=== PATIENT | female | born 1985 | race Caucasian/White ===

== ENCOUNTER 2025-05-19 14:37 | Outpatient (REF) | payer MEDICAID, SELFPAY ==
--- OUTSIDE RECORDS SUMMARY | 2025-05-19 14:00 | XMS_ITS | Encounter Summary ---
Author Organization [employer] Address [address] [place] [address] [address] [address] Care Team Providers Care Spiral Machine Operator Name Role Phone Vandana Horne NP Primary Care Provider [phone] Reason for Referral * Consultation (STAT) - Authorized Specialty Diagnoses / Procedures Referred By Lanie walsh Referred To Contact Family Medicine Diagnoses Psoriasis Vandana Horne NP [address] [place] [address] Phone: tel: fax: Referral ID Status Reason Start Date Expiration Date Visits Requested Visits Authorized [id number] Authorized Specialty Services Required 05/19/2026 1 1 Reason for Visit * Reason Comments Rash Encounter Details Date Type Department Care Team ([facility] Contact Info) Description 05/19/2025 2:00 PM EST Office Visit [facility] [address] [place], [place] [phone] Vandana Horne NP [address] [place] [address] Psoriasis (Primary Dx); Acute cellulitis Social History Tobacco Use Types Packs/Day Years Used Date Smoking Tobacco: Every Day Cigarettes Passive Smoke Exposure: Current Smokeless Tobacco: Never Tobacco Cessation:Ready to Q uit: Not Asked; Counseling Given: Not Answered Comments Unknown Sex and Gender Information Value Date Recorded Sex Assigned at Female 03/21/2022 10:36 AM EDT Legal Sex Female 10:36 AM EDT Gender Identity Female 05/19/2025 1:57 PM EST Sexual Orientation Straight 05/19/2025 1: 57 PM EST documented as of this encounter Last Filed Vital Signs Vital Sign Reading Time Taken Comments Blood Pressure 147/97 05/19/2025 2:06 PM EST Pulse 115 05/19/2025 2:06 PM EST Temperature 36.3 C (97.4 F) 05/19/2025 2:06 PM EST Respiratory Rate 16 05/19/2025 2:06 PM EST Oxygen Saturation 100% 05/19/2025 2:06 PM EST Inhaled Oxygen Concentration - - Weight 46.9 kg (103 lb 6.4 oz) 05/19/2025 2:06 P M EST Height 152.4 cm (5') 05/19/2025 2:06 PM EST Body Mass Index 20.19 05/19/2025 2:06 PM EST documented in this encounter Progress Notes * Vandana Horne NP - 05/19/2025 2:00 PM EST Jennifer Hawley, 40-year-old female - Chronic scalp eczema since childhood, worsened after head injury with matt and stitches at theback of the head at the beginning of the year - Scalp burning sensation, covered in flakes, intermittent improvement with topical cream - Rash on left ankle and foot for approximately 2 months, associated with swelling, burning, aching, and increased itchiness - Swelling in left ankle and foot persistent for almost 1 month, no trauma reported - Difficulty walking due to pain in left ankle and foot - Denies history of gout - Family history of gout in mother - History of miscarriage approximately 1.5 years after previous childbirth - Started taking liquid collagen recently Problem List[1] Medical History[2] Allergies[3] Review of Systems Musculoskeletal: Positive for arthralgias. Skin: Positive for rash. BP (!) 147/97 (BP Location: Left arm, Patient Position: Sitting, BP Cuff Size: Adult) Pulse (!) 115 Temp 97.4 ??F (36.3 ??C) (Temporal) Resp 16 Ht 5' (1.524 m) Wt 103 lb 6.4 oz (46.9 kg) SpO2 100% BMI 20.19 kg/m?? Physical Exam Vitals reviewed. HENT: Head: Normocephalic and atraumatic. Nose: Nose normal. Eyes: Conjunctiva/sclera: Conjunctivae normal. Cardiovascular: Rate and Rhythm: Normal rate and regular rhythm. Pulmonary: Effort: Pulmonary effort is normal. Breath sounds: Normal breath sounds. Musculoskeletal: General: Swelling and tenderness present. Cervical back: Normal range of motion and neck supple. Left lower leg: Edema present. Skin: Findings: Erythema, lesion and rash present. Comments: See media (left lower extremity with large plaque, nad ulceration, sig erythema) Neurological: General: No focal deficit present. Mental Status: She is alert. - SKIN: Erythematous rash on the left ankle, warm to touch. - EXTREMITIES: Edema in the left ankle and foot, described as achy. Results: No visits with results within 28 Day(s) from this visit. Latest known visit with results is: No results found for any previous visit. Assessment & Plan Psoriasis Orders: CBC auto differential; Future Sed Rate by Modified Westergren; Future C-reactive Protein; Future Rheumatoid Factor; Future DUGLAS Screen,IFA, with Reflex to Titer and Pattern; Future TSH W/Reflex to FT4; Future Comprehensive Metabolic Panel; Future XR Ankle 3+ Views Left; Future Referral to [facility] Skin Adult; Future Acute cellulitis Assessment & Plan Psoriasis: - Plaque psoriasis with severe presentation. No evidence of psoriatic arthritis. - Prescribed topical steroid cream for 4 weeks. Recommended daily use of skin moisturizers with ointment or thick cream. Referral to manager call center for further management, including consideration of phototherapy and immunotherapy. Edema and rash of left ankle: - Edema and rash of left ankle with concern for possible complicated infection. Differential diagnosis includes cellulitis. - Ordered blood work including CMP, liver and kidney function, and autoimmune panel. Ordered X-ray of left ankle. Will seek second opinion from colleague. May add antibiotic depending on further evaluation. Prescription - Topical high-potency corticosteroid cream, once or twice daily for 4 weeks - Emollient ointment or thick cream, daily Appointments - Referral to manager call center Current Medications[4] Based on our discussion, I have outlined the following instructions for you: - Use the prescribed steroid cream on your skin once or twice a day for 4 weeks, and also apply a thick moisturizing cream or ointment every day. Next appointment(s): Referral to manager call center This note was drafted using [employer] (AI) technology. The patient/patient's guardian has been informed and has consented to the use of this technology: Yes [1] There is no problem list on file for this patient. [2] No past medical history on file. [3] Allergies Allergen Reactions Sulfa Antibiotics [4] Current Outpatient Medications: doxycycline (Vibra-Tabs) 100 MG tablet, Take 1 tablet (100 mg) by mouth 2 times daily for 7 days. Take with a full glass of water and do not lie down for at least 30 minutes after., Disp: 14 tablet, Rfl: 0 predniSONE (Deltasone) 20 MG tablet, Take 1 tablet (20 mg) by mouth 3 times daily for 5 days, THEN 1 tablet (20 mg) 2 times daily for 5 days, THEN 1 tablet (20 mg) Once per day for 5 days., Disp: 30 tablet, Rfl: 0 documented in this encounter Plan of Treatment Upcoming Encounters Date Type Department Care Team (Late st Contact Info) Description 06/20/2025 10:45 AM EST Office Visit [facility] [address], [place] [phone] Vandana Horne NP [address] [place] [address] Scheduled Orders Name Type Priority Associated Diagnoses Orde r Schedule Sed Rate by Modified Alejandraren Lab Routine Psoriasis Expected: 05/19/2025, Expires: 05/19/2026 C-reactive Protein Lab Routine Psoriasis Expected: 05/19/2025 (Approximate), Expires: 05/19/2026 Rheumatoid Factor Lab Routine Psoriasis Expected: 05/19/2025, Expires: 05/19/2026 DUGLAS Screen,IFA, with Reflex to Titer and Pattern Lab Routine Psoriasis Expected: 05/19/2025 (Approximate), Expires: 05/19/2026 TSH W/Reflex to FT4 Lab Routine Psoriasis Expected: 05/19/2025 (Approximate), Expires: 05/19/2026 Comprehensive Metabolic Panel Lab Routine Psoriasis Expected: 05/19/2025 (Approximate), Expires: 05/19/2026 XR Ankle 3+ Views Left Imaging Routine Psoriasis Expected: 05/19/2025, Expires: 05/19/2026 Scheduled Referrals Name Type Priority Associated Diagnoses Orde r Schedule Referral to [facility] D[facility] Skin Adult Outpatient Referral STAT Psoriasis Expected: 05/19/2025 (Approximate), Expires: 05/19/2026 documented as of this encounter Procedures Procedure Name Priority Date/Time Associated Diagnosis Comments CBC WITH AUTO DIFFERENTIAL Routine 05/19/2025 2:43 PM EST Psoriasis documented in this encounter Results * (ABNORMAL) CBC auto differential (05/19/2025 2:43 PM EST) White Blood Count 10.4 4.8 - 10.8 X10*3/uL [facility] Red Blood Count 4.71 4.20 - 5.50 X10*6/uL [facility] Hemoglobin 14.8 12.0 - 16.0 g/dl [facility] Hematocrit 46.0 37.0 - 47.0 % [facility] Mean Corpuscular Volume 97.7 80.0 - 98.0 fL [facility] Mean Corpuscular Hemoglobin 31.4 27.0 - 33.0 pg [facility] Mean Corpuscular HGB Conc 32.2 31.0 - 35.0 g/dl [facility] Red Cell Distribution Width 12.1 11.0 - 16.0 % [facility] Platelet Count 305 160 - 400 X10*3/uL [facility] Mean Platelet Volume 10.6 9.4 - 12.3 fL [facility] Neutrophils Percent Auto 79.0(H) 45 - 73 % [facility] Imm Gran Pct Auto 0.4 0.0 - 0.4 % [facility] Lymphocytes Percent Auto 12.0(L) 20 - 40 % [facility] Monocytes Percent Auto 5.7 2 - 11 % [facility] Eosinophils Percent Auto 2.2 0 - 4 % [facility] Basophils Percent Auto 0.7 0 - 2 % [facility] NRBC Pct Auto 0.0 0.0 - 0.2 /100WBC [facility] Neutrophils Absolute Auto 8.2 2.0 - 8.3 x10*3/uL [facility] Imm Gran Abs Auto 0.04(H) 0.00 - 0.03 X10*3/uL [facility] Lymphocytes Absolute Auto 1.2 1.2 - 4.9 X10*3/uL [facility] Monocytes Absolute Auto 0.6 0.1 - 1.2 X10*3/uL [facility] Eosinophils Absolute Auto 0.2 0.0 - 0.4 X10*3/uL [facility] Basophils Absolute Auto 0.1 0.0 - 0.2 X10*3/uL [facility] NRBC Abs Auto 0.000 0.0 - 0.012 X10*3/uL [facility] Blood Venous blood specimen / Unknown 05/19/2025 2:43 PM EST 05/19/2025 4:20 PM EST us Vandana Horne NP LAB BLOOD ORDERABLES Final Resul t Performing Organization Address City/State/[facility] Co de Phone Number [facility] [address] [place] [address] [phone] documented in this encounter Visit Diagnoses Diagnosis Psoriasis- Primary Other psoriasis Acute cellulitis documented in this encounter Care Teams Spiral Machine Operator Relationship Specialty Start Date End Date Vandana Horne NP [address] [place] [phone] PCP - General Family Medicine 05/19/25 documented as of this encounter
[2025-05-19 16:25] LABS: MANUAL DIFF FLAG NO
[2025-05-19 16:43] LABS: Hematocrit 46.0 % (37.0-47.0); Hemoglobin 14.8 g/dl (12.0-16.0); Imm Gran Abs Auto 0.04 X10*3/uL (0.00-0.03); Imm Gran Pct Auto 0.4 % (0.0-0.4); Lymphocytes Absolute Auto 1.2 X10*3/uL (1.2-4.9); Mean Corpuscular HGB Conc 32.2 g/dl (31.0-35.0); Mean Corpuscular Hemoglobin 31.4 pg (27.0-33.0); Mean Corpuscular Volume 97.7 fL (80.0-98.0); NRBC Abs Auto 0.000 X10*3/uL (0.0-0.012); NRBC Pct Auto 0.0 /100WBC (0.0-0.2); Platelet Count 305 X10*3/uL (160-400); Red Blood Count 4.71 X10*6/uL (4.20-5.50); White Blood Count 10.4 X10*3/uL (4.8-10.8)
--- OUTSIDE RECORDS SUMMARY | 2025-05-19 16:59 | XMS_ITS | Clinical Summary ---
Author Organization [employer] Address [address] [place] [address] [address] [address] Care Team Providers Care Deck Lid Fitter Name Role Phone Vandana Horne NP Primary Care Provider [phone] Allergies Active Allergy Reactions Criticality Noted Date Comments Sulfa Antibiotics 05/19/2025 Medications doxycycline (Vibra-Tabs) 100 MG tablet Take 1 tablet (100 mg) by mouth 2 times daily for 7 days. Take with a full glass of water and do not lie down for at least 30 minutes after. 14 tablet 05/19/2025 Active predniSONE (Deltasone) 20 MG tablet Take 1 tablet (20 mg) by mouth 3 times daily for 5 days, THEN 1 tablet (20 mg) 2 times daily for 5 days, THEN 1 tablet (20 mg) Once per day for 5 days. 30 tablet 05/19/2025 6 Active Encounters Date Type Department Care Team Description 05/19/2025 2:00 PM EST Office Visit [facility] WALK-IN [address] [address] Vandana Horne NP Psoriasis (Primary Dx); Acute cellulitis 05/19/2025 Travel from Last 3 Months Social History Tobacco Use Types Packs/Day Years [...] Orientation Straight 05/19/2025 1: 57 PM EST Last Filed Vital Signs Vital Sign Reading [...] Mass Index 20.19 05/19/2025 2:06 PM EST Plan of Treatment Upcoming Encounters Date Type Department Care Team (Late st Contact Info) Description 06/20/2025 10:45 AM EST Office Visit [facility] MEDIC[facility] [address] [place], [place] [phone] Vandana Horne, SARI [address] [place] [address] Health Maintenance Due Date Last Done Comments Depression Screening 1984 HIV Screening 1984 Lipid Panel 1984 SDOH Screening 1984 Disability Screening 1984 Alcohol/Substance Use Screening 1996 Family Planning (PISQ) 02/28/1999 HPV Vaccines (1 - 3-dose series) 02/28/1999 Hepatitis C Screening 02/28/2002 Hepatitis B Vaccines (1 of 3 - 19+ 3-dose series) 02/28/2003 Pneumococcal Vaccine: Pediat rics (0 to 5 Years) and At-Risk Patients (6 to 49) Years (1 of 2 - PCV) 02/28/2003 Pap Smear 02/28/2005 Cervical Cancer Screening 02/28/2014 HPV/Cotest 02/28/2014 Mammogram 2024 COVID-19 Vaccine (1 - 2024-2 6 season) 2025 Influenza Vaccine (#1) 2025 Tobacco Screening 05/19/2026 05/19/2025 Zoster Vaccines (1 of 2) 02/28/2034 DTaP/Tdap/Td Vaccines (2 - T d or Tdap) 11/15/2034 11/15/2024 RSV Patients and Pa tients Aged 60 years or older (1 - 1-dose 75+ series) 02/28/2059 HIB Vaccines Aged Out No longer eligi ble based on patient's age to complete this topic Hepatitis A Vaccines Aged Out No long er eligible based on patient's age to complete this topic IPV Vaccines Aged Out No longer eligi ble based on patient's age to complete this topic Meningococcal B Vaccine Aged Out No l onger eligible based on patient's age to complete this topic Meningococcal Vaccine Aged Out No johanne ayan eligible based on patient's age to complete this topic RSV under 20 months Aged Out No longe r eligible based on patient's age to complete this topic Rotavirus Vaccines Aged Out No longer eligible based on patient's age to complete this topic Procedures Procedure Name Priority Date/Time Associated Diagnosis Comments CBC WITH AUTO DIFFERENTIAL Routine 05/19/2025 2:43 PM EST Psoriasis from Last 3 Months Results * (ABNORMAL) CBC auto differential (05/19/2025 2:43 PM EST) White Blood Count 10.4 4.8 - 10.8 X10*3/uL [facility] Red Blood Count 4.71 4.20 - 5.50 X10*6/uL [facility] Hemoglobin 14.8 12.0 - 16.0 g/dl [facility] Hematocrit 46.0 37.0 - 47.0 % [facility] Mean Corpuscular Volume 97.7 80.0 - 98.0 fL [facility] Mean Corpuscular Hemoglobin 31.4 27.0 - 33.0 pg [facility] Mean Corpuscular HGB Conc 32.2 31.0 - 35.0 g/dl [facility] Red Cell Distribution Width 12.1 11.0 - 16.0 % [facility] Platelet Count 305 160 - 400 X10*3/uL [facility] Mean Platelet Volume 10.6 9.4 - 12.3 fL [facility] Neutrophils Percent Auto 79.0(H) 45 - 73 % [facility] Imm Gran Pct Auto 0.4 0.0 - 0.4 % [facility] Lymphocytes Percent Auto 12.0(L) 20 - 40 % [facility] Monocytes Percent Auto 5.7 2 - 11 % [facility] Eosinophils Percent Auto 2.2 0 - 4 % [facility] Basophils Percent Auto 0.7 0 - 2 % [facility] NRBC Pct Auto 0.0 0.0 - 0.2 /100WBC [facility] Neutrophils Absolute Auto 8.2 2.0 - 8.3 x10*3/uL [facility] Imm Gran Abs Auto 0.04(H) 0.00 - 0.03 X10*3/uL [facility] Lymphocytes Absolute Auto 1.2 1.2 - 4.9 X10*3/uL [facility] Monocytes Absolute Auto 0.6 0.1 - 1.2 X10*3/uL [facility] Eosinophils Absolute Auto 0.2 0.0 - 0.4 X10*3/uL [facility] Basophils Absolute Auto 0.1 0.0 - 0.2 X10*3/uL [facility] NRBC Abs Auto 0.000 0.0 - 0.012 X10*3/uL [facility] Blood Venous blood specimen / Unknown 05/19/2025 2:43 PM EST 05/19/2025 4:20 PM EST us Vandana Horne SUPERVISOR SOUND TECHNICIAN LAB BLOOD ORDERABLES Final Resul t [facility] [address] [place] [address] [phone] from Last 3 Months Insurance [facility] C3 Care Teams Deck Lid Fitter Relationship Specialty Start Date End Date Vandana Horne NP [address] [place] [phone] PCP - General Family Medicine 05/19/25
--- OUTSIDE RECORDS SUMMARY | 2025-05-19 17:00 | XMS_ITS | Encounter Summary ---
Author Organization [employer] Address [address] [place] [address] [address], [place] [address] Care Team Providers Care Pediatric Pathologist Name Role Phone Vandana Horne NP Primary Care Provider [phone] Encounter Details Date Type Department Care Team (Latest Contact Info) Description 05/19/2025 Travel Social History Tobacco Use Types Packs/Day Years Used Date Smoking Tobacco: Every Day Cigarettes Passive Smoke Exposure: Current Smokeless Tobacco: Never Comments Unknown Sex and Gender Information Value Date Recorded Sex Assigned at Female 03/21/2022 10:36 AM EDT Legal Sex Female 10:36 AM EDT Gender Identity Female 05/19/2025 1:57 PM EST Sexual Orientation Straight 05/19/2025 1: 57 PM EST documented as of this encounter Plan of Treatment Upcoming Encounters Date Type Department Care Team (Late st Contact Info) Description 06/20/2025 10:45 AM EST Office Visit [facility] [address] [place] [address] Vandana Horne NP [address] [place] [address] documented as of this encounter Visit Diagnoses Not on filedocumented in this encounter Care Teams Pediatric Pathologist Relationship Specialty Start Date End Date Vandana Horne NP [address] [place] [address] PCP - General Family Medicine 05/19/25 documented as of this encounter
[2025-05-19 18:04] LABS: Alanine Aminotransferase 40 U/L (0-31); Albumin Level 3.9 g/dL (3.5-5.0); Alkaline Phosphatase 94 U/L (39-117); Anion Gap 14 (12-20); Aspartate Amino Transferase 115 U/L (5-31); Blood Urea Nitrogen 6 mg/dL (9-16); Calcium 9.0 mg/dL (8.4-10.2); Carbon Dioxide 26 mmol/L (22-29); Chloride 107 mmol/L (96-108); Estimated Glomerular Filt Rate > 60; Potassium 3.9 mmol/L (3.3-5.1); Sodium 143 mmol/L (135-145); Total Protein 6.2 g/dL (6.5-8.0)
[2025-05-20 13:08] LABS: Anti Nuclear Antibody Screen NEGATIVE (NEGATIVE)
== END 2025-05-19 14:38 | disposition home or self-care (01) ==
LOC: HO.HHCX 14:37
PROVIDERS: PCP Nurse Practitioner Family; Visit Provider Nurse Practitioner Family
DX: L40.9 Psoriasis, unspecified (principal); Z01.84 Encounter for antibody response examination
CPT/HCPCS: 36415; 80053; 84443; 85025; 85652; 86038; 86140; 86431